=== PATIENT | male | born 1965 | race Caucasian/White ===

== ENCOUNTER 2020-08-23 11:30 | Day surgery (SDC) | payer BC ==
[2020-08-22 13:48] LABS: COVID AG,FIA SOURCE NASOPHARYNGEAL
[~2020-08-23] VITALS: Ht 167.6 cm; Wt 104.5 kg
[~2020-08-23 11:30] MED LIST: EFAV1TAB2 PO; SODIUM CHLORIDE 0.9% 1,000 ML ONE
[2020-08-23] MEDS ORDERED: PROPOFOL 1% 20 ML VIAL IVP ONE (12:00)
[2020-08-23] MEDS ORDERED: LIDOCAINE/PF 2% 5 ML VIAL IM ONE (12:00)
[2020-08-23] MEDS ORDERED: SODIUM CHLORIDE 0.9% 1,000 ML IV ONE (12:00)
== END 2020-08-23 15:00 | disposition home or self-care (01) ==
LOC: SURGERY 11:30
PROVIDERS: ATTEND Student in an Organized Health Care Education/Training Program
DX: K21.9 Gastro-esophageal reflux disease without esophagitis (principal); K44.9 Diaphragmatic hernia without obstruction or gangrene; K29.50 Unspecified chronic gastritis without bleeding; B20 Human immunodeficiency virus [HIV] disease; K31.89 Other diseases of stomach and duodenum; Z72.89 Other problems related to lifestyle; Z79.899 Other long term (current) drug therapy; Z83.3 Family history of diabetes mellitus
CPT/HCPCS: 87426; 88305; 88312; 88313; J2704; J3490; J7030